=== PATIENT | male | born 1965 | race Caucasian/White ===

== ENCOUNTER 2020-06-20 15:31 | Inpatient (IN) | payer OTHER, SELFPAY ==
[2020-06-20 15:39] VITALS: BP 160/85; PULSE 74; RESP 18; TEMP 36.4; O2SAT 100; BMI 26.6
--- NOTE | 2020-06-20 15:47 | CTR_ITS ---
PROCEDURE INFORMATION: Exam: CT Head Without Contrast Exam date and time: 06/20/2020 3:50 PM Age: 54 years old Clinical indication: Altered mental status/memory loss; Confusion or disorientation; Patient HX: AMS - was found wandering naked in the [place] TECHNIQUE: Imaging protocol: Computed tomography of the head without contrast. Radiation optimization: All CT scans at this facility use at least one of these dose optimization techniques: automated exposure control; mA and/or kV adjustment per patient size (includes targeted exams where dose is matched to clinical indication); or iterative reconstruction. COMPARISON: No relevant prior studies available. RADIATION DOSE METRICS: Total DLP (mGy-cm): 874.38 FINDINGS: Brain: Normal. No hemorrhage. Unremarkable white matter. No mass effect. Cerebral ventricles: No ventriculomegaly. Bones/joints: Unremarkable. No acute fracture. Paranasal sinuses: Visualized sinuses are unremarkable. No fluid levels. Mastoid air cells: Visualized mastoid air cells are well aerated. Soft tissues: Unremarkable. CT/CT head wo con* [id number] IMPRESSION: No acute intracranial abnormality. Radiation Dose CTDIVOL = (mGy): DLP = 874.38 (mGy-cm)
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
[2020-06-20 16:23] LABS: Basophils # 0.1 10^3/uL (0.0-0.1); Basophils % 0.6 %; Eosinophils # 0.2 10^3/uL (0.0-0.8); Eosinophils % 1.7 %; Hematocrit 49.1 % (42.0-52.0); Hemoglobin 15.6 g/dL (11.7-16.6); Lymphocytes # 3.9 10^3/uL (0.8-4.8); Lymphocytes % 28.2 %; Mean Corpuscular HGB Conc 31.8 g/dL (30.0-36.0); Mean Corpuscular Hemoglobin 29.6 pg (28.0-34.0); Mean Corpuscular Volume 93.2 fL (80-94); Mean Platelet Volume 11.3 fL (7.4-10.4); Monocytes # 1.4 10^3/uL (0.2-0.9); Monocytes % 10.3 %; Neutrophils # 8.07 10^3/uL (1.8-7.7); Neutrophils % 58.8 %; Nucleated Red Blood Cells % 0 %; Platelet Count 281 10^3/cmm (130-400); Red Blood Count 5.27 10^6/uL (4.1-5.3); Red Cell Distribution Width 12.7 % (12.1-15.1); White Blood Count 13.7 10^3/uL (4.0-10.0)
--- NOTE | 2020-06-20 16:37 | PC.NURSE ---
Patient items placed in drawer #1 with patient label
[2020-06-20 16:51] LABS: Alanine Aminotransferase 43 U/L (0-41); Albumin Level 4.8 g/dL (3.5-5.2); Alkaline Phosphatase 75 IU/L (40-130); Anion Gap 18.6 (5-19); Aspartate Amino Transferase 84 U/L (0-40); Blood Urea Nitrogen 36 mg/dL (6-20); Calcium 9.8 mg/dL (8.5-10.5); Carbon Dioxide 27 mmol/L (22-29); Chloride 100 mmol/L (98-107); Globulin 3.2 g/dL (1.3-4.6); Glomerular Filtration Rate 57.3 mL/min (90-130); Glucose 91 mg/dL (65-115); Osmolality Calculated 302 mOsm/kg (285-295); Potassium 3.6 mmol/L (3.5-5.1); Salicylate 0.6 mg/dL (3-10); Sodium 142 mmol/L (136-145); Total Bilirubin 0.3 mg/dL (0.15-1.2)
[2020-06-20 16:53] LABS: Acetaminophen < 5.0 ug/mL (10-30); Alcohol Level < 10 mg/dL (0-10)
[2020-06-20 17:10] LABS: Amphetamines Screen Urine Negative (Negative); Barbiturates Screen Urine Negative (Negative); Benzodiazepines Screen Urine Negative (Negative); Cocaine Screen Urine Negative (Negative); Opiate Screen Urine Negative (Negative); PCP Screen Urine Negative (Negative); THC Screen Urine Positive (Negative)
[2020-06-20 17:17] VITALS: BP 188/106; PULSE 86; RESP 18; TEMP 36.8; O2SAT 97
[2020-06-20 18:06] VITALS: BP 117/77; PULSE 75; RESP 14; O2SAT 98
[2020-06-20] MEDS: hyDROXYzine 25 mg Capsule 50 MG PO (20:48)
[2020-06-20] MEDS: trazodone 50 mg Tablet PO (20:48)
[2020-06-20 21:35] VITALS: BP 137/74; PULSE 63; RESP 18; TEMP 36.7; O2SAT 100
[2020-06-21 06:00] VITALS: BP 140/82; PULSE 77; RESP 18; TEMP 36.5; O2SAT 96
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
[2020-06-21 13:31] VITALS: BP 167/96; PULSE 68; RESP 18; TEMP 36.6; O2SAT 97
--- NOTE | 2020-06-21 15:26 | PC.NURSE ---
Pharmacy Patient could only recall [facility] when asked what pharmacy he used. [facility] in [place], [place]. [facility] [place] contacted by this nurse and each [facility] no record [facility].
[2020-06-21] MEDS: trazodone 50 mg Tablet PO (20:50)
[2020-06-21] MEDS: hyDROXYzine 25 mg Capsule 50 MG PO (20:50)
[2020-06-21] MEDS: OLANZapine 5 mg ODT PO (20:51)
[2020-06-21 21:37] VITALS: BP 145/91; PULSE 74; RESP 18; TEMP 36.6; O2SAT 99
[2020-06-22] MEDS: haloperidol 5 mg Tablet PO (00:27)
[2020-06-22] MEDS: OLANZapine 5 mg ODT PO ×2 (01:44→22:34)
[2020-06-22 06:00] VITALS: RESP 16
[2020-06-22] MEDS: acetaminophen 325 mg Tablet 650 MG PO (12:43)
[2020-06-22 14:00] VITALS: BP 147/82; PULSE 56; RESP 18; TEMP 36.7; O2SAT 96
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
[2020-06-22] MEDS: LORazepam 1 mg Tablet PO (20:33)
[2020-06-22 22:00] VITALS: BP 145/81; PULSE 60; RESP 18; TEMP 36.8; O2SAT 99
[2020-06-23 06:00] VITALS: BP 134/86; PULSE 62; RESP 18; TEMP 36.6; O2SAT 94
[2020-06-23 11:24] VITALS: BP 134/86; PULSE 62; RESP 18; TEMP 36.6; O2SAT 94
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
== END 2020-06-23 14:00 | disposition home or self-care (01) | DRG 897 ==
LOC: ER 16:08 → NP 17:53
PROVIDERS: Emergency Medicine; Admitting Provider Psychiatry & Neurology Psychiatry; Visit Provider Psychiatry & Neurology Psychiatry
DX: F12.229 Cannabis dependence with intoxication, unspecified (principal); F03.90 Unspecified dementia, unspecified severity, without behavioral disturbance, psychotic disturbance, mood disturbance, and anxiety
CPT/HCPCS: 12345; 51701; 70450; 80053; 80306; 80307; 85025; 99284

== ENCOUNTER 2020-11-01 12:49 | Inpatient (IN) | payer OTHER, SELFPAY ==
[2020-11-01 12:51] VITALS: BP 162/86; PULSE 96; RESP 16; TEMP 36.9; O2SAT 100; BMI 33.2
--- NOTE | 2020-11-01 13:06 | XRR_ITS ---
PROCEDURE INFORMATION: Exam: XR Chest Exam date and time: 11/01/2020 1:15 PM Age: 54 years old Clinical indication: Other: Reduced breath sounds TECHNIQUE: Imaging protocol: XR of the chest Views: 1 view. COMPARISON: No relevant prior studies available. FINDINGS: Lungs: Unremarkable. No consolidation. Pleural spaces: Unremarkable. No pleural effusion. No pneumothorax. Heart/Mediastinum: Unremarkable. No cardiomegaly. Bones/joints: Unremarkable. XR/XR chest 1V portable [id number] IMPRESSION: No acute findings.
--- NOTE | 2020-11-01 13:06 | CT_ITS ---
WS: [id number] CT HEAD NONCONTRAST HISTORY: altered mental status TECHNIQUE: Contiguous axial imaging performed through the brain in 2.5 mm imaging. Bone and soft tiss ue windows. Sagittal and coronal reformats reviewed. All CT scans at [facility] use at ast one of these dose optimization techniques: automated exposure control; mA and/or kV adjustment pe r patient size (includes targeted exams where dose is matched to clinical indication); or iterative r econstruction. DLP: 865.91 mGy.cm COMPARISON: 06/20/2020 Motion artifact obscuring portions of the brain. No hemorrhage or mass effect is identified. Mild chr onic microvascular ischemic disease. No atrophy or prior infarcts or herniation. Ventricles: Normal size with no hydrocephalus. Paranasal sinuses: As visualized are clear. Mastoid air cells: Well pneumatized. Calvarium and scalp: Skull is intact with no soft tissue edema or swelling. CT/CT head wo con* [id number] IMPRESSION: 1. No acute intracranial hemorrhage or edema. 2. Mild chronic microvascular ischemic disease.
--- NOTE | 2020-11-01 13:06 | ECG_ITS ---
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
[2020-11-01 14:14] LABS: Basophils # 0.1 10^3/uL (0.0-0.1); Basophils % 0.4 %; Eosinophils # 0.2 10^3/uL (0.0-0.8); Eosinophils % 1.3 %; Hematocrit 47.8 % (42.0-52.0); Hemoglobin 15.7 g/dL (11.7-16.6); Lymphocytes # 2.6 10^3/uL (0.8-4.8); Lymphocytes % 18.1 %; Mean Corpuscular HGB Conc 32.8 g/dL (30.0-36.0); Mean Corpuscular Volume 91.2 fL (80-94); Mean Platelet Volume 11.7 fL (7.4-10.4); Monocytes # 1.3 10^3/uL (0.2-0.9); Neutrophils # 10.09 10^3/uL (1.8-7.7); Neutrophils % 70.9 %; Nucleated Red Blood Cells % 0 %; Platelet Count 244 10^3/cmm (130-400); Red Blood Count 5.24 10^6/uL (4.1-5.3); Red Cell Distribution Width 12.3 % (12.1-15.1); White Blood Count 14.2 10^3/uL (4.0-10.0)
[2020-11-01 14:35] LABS: Troponin T (5th) Once 16 ng/L (0-15)
[2020-11-01 14:39] LABS: Alanine Aminotransferase 19 U/L (0-41); Albumin Level 4.7 g/dL (3.5-5.2); Alcohol Level < 10 mg/dL (0-10); Alkaline Phosphatase 81 IU/L (40-130); Anion Gap 17.7 (5-19); Aspartate Amino Transferase 30 U/L (0-40); Blood Urea Nitrogen 22 mg/dL (6-20); Calcium 9.3 mg/dL (8.5-10.5); Carbon Dioxide 26 mmol/L (22-29); Chloride 100 mmol/L (98-107); Globulin 2.8 g/dL (1.3-4.6); Glomerular Filtration Rate 52.6 mL/min (90-130); Glucose 95 mg/dL (65-115); Osmolality Calculated 293 mOsm/kg (285-295); Potassium 3.7 mmol/L (3.5-5.1); Sodium 140 mmol/L (136-145); Total Bilirubin 0.4 mg/dL (0.15-1.2); Total Protein 7.5 g/dL (6.6-8.7)
[2020-11-01] MEDS: sodium chloride 0.9% 1,000 ML 999 ML IV (14:47)
[2020-11-01 15:10] LABS: Add Urine Microscopic? NO
[2020-11-01 15:13] VITALS: BP 155/88; PULSE 92; RESP 16; O2SAT 100
[2020-11-01 15:24] LABS: Blood Urine Neg (Negative); Glucose Urine UA Norm (Normal); Ketones Urine Negative (Negative); Nitrate Urine Negative (Negative); Protein Urine Neg (Negative); Urine Appearance Clear (CLEAR); Urine Color Yellow (Yellow); pH Urine 6 (5-7)
[2020-11-01 15:25] LABS: Bilirubin Urine Neg (Negative); Leukocyte Esterase Urine Negative (Negative); Urobilinogen Urine 1 mg/dL (Negative)
[2020-11-01 15:42] LABS: Amphetamines Screen Urine Negative (Negative); Barbiturates Screen Urine Negative (Negative); Benzodiazepines Screen Urine Negative (Negative); Cocaine Screen Urine Negative (Negative); Opiate Screen Urine Negative (Negative); PCP Screen Urine Negative (Negative); THC Screen Urine Negative (Negative)
[2020-11-01 16:11] VITALS: BP 142/81; PULSE 84; RESP 16; O2SAT 99
[2020-11-01 16:12] VITALS: BP 130/88; PULSE 95; RESP 16; O2SAT 95
[2020-11-01 16:40] VITALS: BP 124/84; PULSE 88; RESP 16; TEMP 37.1; O2SAT 97
--- NOTE | 2020-11-01 18:23 | PC.NURSE ---
Read and agree with assessment
[2020-11-01 22:00] VITALS: BP 142/90; PULSE 101; RESP 18; TEMP 37.5; O2SAT 94
[2020-11-02 06:42] VITALS: BP 132/80; PULSE 77; RESP 18; TEMP 36.7; O2SAT 97
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
[2020-11-02 14:00] VITALS: BP 127/64; PULSE 68; RESP 16; TEMP 37.1; O2SAT 95
[2020-11-02] MEDS: OLANZapine 5 mg ODT PO (14:58)
--- NOTE | 2020-11-02 14:58 | PC.NURSE ---
PRN Zyprexa Zydis/agitation Patient given medication d/t increased confusion, wandering, and disorientation. Patient agreeable to taking medication.
[2020-11-02 20:09] VITALS: BP 132/79; PULSE 72; RESP 15; TEMP 37.4; O2SAT 93
[2020-11-03 06:00] VITALS: RESP 17
--- NOTE | 2020-11-03 11:37 | PM.NPN ---
Subjective NPU Subjective: Interval history: Guanako presented today initially sleeping but easily aroused. Initially he seemed to be a little more pleasant and interactive. He reported that he had and having nightmares but they were gone. This ad copy writer inquired as to the content of the nightmares and essentially stopped speaking after that. He laid in the bed with his eyes closed as if he had fallen asleep and it was not until the fact that he was not sleeping was challenged that he then responded with some of the content from yesterday. Specifically that somehow this ad copy writer knows was going on and knows the issues that he is dealing with and he expressed irritability at the questions. Ultimately he said he did not want to speak anymore. Mental Status Exam MSE Comments: This is an overweight white male in hospital scrubs with adequate grooming and eye contact. No abnormal movements except for psychomotor agitation. Mostly uncooperative with exam in mild to moderate distress. Speech was normal rate and volume. Mood not described, affect irritable. Thought process disorganized. Thought content: Patient did not respond to questions regarding suicidal or homicidal ideation but continued to have an irritable edge towards anyone a asking questions of him, there were no delusions reported but clear paranoid and bizarre delusions appear present, he did not appear to be attending to internal stimuli but seemed to believe that people could read his mind or know things ahead of time or he was able to read what they were thinking. Attention and concentration were limited and memory was unreliable but none were formally tested. He is alert and oriented to person and place. Insight and judgment are impaired and impulse control is impaired. Vitals/I&O/Wt Last Vital Signs Temp 99.3 F 11/02/20 20:09 Pulse 72 11/02/20 20:09 Resp 17 11/03/20 06:00 BP 132/79 11/02/20 20:09 Pulse Ox 93 11/02/20 20:09 Weight last 48 hrs Weight 102.058 kg Data NPU : 11/01/20 14:00 11/01/20 14:00 A&P Additional A&P Information (1) Cannabis intoxication delirium: (2) Substance abuse: (3) Psychosis: (4) Delirium, drug-induced: Additional A&P Information This is a 54-year-old white male who presents confused to the psychiatric unit as he had in May of last year either not knowing who he is or not being willing to say who he is with a negative UDS but clear psychosis/delirium of unknown etiology. 1. Continue current medication. He clearly seems to be a candidate for an antipsychotic but he refuses to even discuss medications. 2. Continue every 15 minute checks for safety. 3. Encourage individual, group and milieu therapies. 4. Encourage sober living treatment after discharge at the highest level of care to which he is willing to commit. Involuntary Hold Information 96 Hour Hold: 96 Hour Involuntary Admission: Yes 96 Hour Hold Ending Date: 11/05/20 96 Hour Hold Ending Time: 14:40 Attestations NPU Medical Necessity Statement*: Inpatient hospitalization is medically necessary and the clinically appropriate intervention at this time. We will monitor medications and make changes as indicated. Likely length of stay 3 to 5 days. Coding Level of Care Code Acute Budget Accountant for Farheen Diane
[2020-11-03 14:00] VITALS: BP 136/88; PULSE 91; RESP 18; TEMP 36.7; O2SAT 96
[2020-11-03] MEDS: OLANZapine 5 mg ODT PO (17:58)
--- NOTE | 2020-11-03 18:01 | PC.NURSE ---
PRN ZYPREXA ZYDIS 5 MG GIVEN PO PER PT C/O STATED ANXIETY. PT HAS BEEN PACING UNIT, WANDERING, CONT TO BE 1:1 WITH SITTER. MUST BE REDIRECTED OFTEN. TOOK PRN MEDICATION WITHOUT INCIDENT. WILL CONT TO MONITOR.
[2020-11-03 20:28] VITALS: BP 147/81; PULSE 79; RESP 16; TEMP 36.8; O2SAT 96
[2020-11-04] MEDS: hyDROXYzine 25 mg Capsule 50 MG PO ×2 (04:02→22:30)
[2020-11-04] MEDS: haloperidol inj 5 mg/mL INJ 1 mL IM (05:18)
[2020-11-04] MEDS: diphenhydrAMINE 50 mg/mL SDV 1mL IM (05:18)
[2020-11-04] MEDS: LORazepam 2 mg/mL INJ 1 mL IM (05:19)
--- NOTE | 2020-11-04 05:21 | PC.NURSE ---
b52/Agitation Pt received B52-2MG ATIVAN IM, 5MG HALDOL IM, 50MG OF BENEDRYL IM, DUE TO INCREASED AGITATION, PT THREW A CHAIR BREAKING IT DOWN THE HALLWAY, BEGAN TO YELL, RUNNING, JUMPING, REFUSED TO FOLLOW INSTRUCTIONS, UNSAFE BEHAVIOR IN THE CHOU, RAN INTO THE BATHROOM, SLINGING THE LINEN CONTAINER IN THE HALLWAY. PT STATED, I HATE THIS SHIT, YOU ALL DO THE SAME THING EVERY DAY, AND HERE I AM, YES, I KNOW WHERE I AM, FUCK, I AM HERE WITH YOU ALL PT WENT INTO THE BATHROOM, SLAMMING THE DOOR, HE IS VISIBLY ANGRY, RED IN THE FACE, EYES ARE WILD AND HE IS INTENT TO TEAR UP THE UNIT. RESTAURANT KITCHEN MANAGER, TRAY DRIER, ARE ON THE UNIT, RN ABLE TO GIVE SHOTS WITHOUT A CODE, PT RETURNED TO BED, RESTING WITH 1:1 ON THE OUTSIDE OF THE DOOR. PT IS RESTING AT THIS TIME.
[2020-11-04 06:00] VITALS: BP 147/95; PULSE 85; RESP 17; TEMP 37; O2SAT 97
[2020-11-04] MEDS: OLANZapine 5 mg ODT PO (10:31)
[2020-11-04] MEDS: haloperidol 5 mg Tablet PO (11:44)
[2020-11-04 14:00] VITALS: BP 115/74; PULSE 70; RESP 20; TEMP 37.1; O2SAT 97
--- NOTE | 2020-11-04 16:00 | PM.NPN ---
Subjective NPU Subjective: Interval history: Continues to be difficult historian, initially reluctant, evasive but subsequently rambling providing delusional responses about 3 kings, new world order, things on TV about communism. Denies any depressive symptoms but reports feeling more irritable about things around him as well as questions being asked. Denies any suicidal ideation Denies any auditory or visual hallucinations Per staff report, multiple episodes of behavioral disturbances, physical agitation Mental Status Exam MSE Comments: Appears older than stated age, lying in bed, initially looking away, poor rapport but subsequently more engaged with interview although providing nonsensical responses Psychomotor activity is somewhat increased, restless, no agitation Speech is normal volume, occasionally faster than normal rate, spontaneous but initially requiring prompting, not pressured I am okay, full range, not labile Alert and oriented to person, type of place, somewhat confused with regards to situation Memory and concentration are poor Intellectual functioning appears to be average based on vocabulary, interview Thought process, tangential, loose Thought content, delusional, does not appear to be attending to any internal stimuli, no suicidal or homicidal ideation Insight and judgment are limited Vitals/I&O/Wt Last Vital Signs Temp 98.7 F 11/04/20 14:00 Pulse 70 11/04/20 14:00 Resp 20 H 11/04/20 14:00 BP 115/74 11/04/20 14:00 Pulse Ox 97 11/04/20 14:00 Data NPU : 11/01/20 14:00 11/01/20 14:00 A&P Assessment and plan (1) Delirium, drug-induced: Status: Acute (2) Psychosis: Status: Acute (3) Substance abuse: Status: Acute (4) Cannabis intoxication delirium: Status: Acute Additional A&P Information Unclear etiology but patient continues to have confusion, nonsensical responses, delusions, worsening in the evening with poor memory. Patient would likely benefit from scheduled antipsychotic targeting organization of thoughts and speech as well as targeting increasing physical agitation which may potentially pose a risk of harm to self and others providing care to him. Continue one-to-one START risperidone 1 mg twice daily targeting psychotic symptoms Continue to provide frequent orientation and behavioral redirection Involuntary Hold Information 96 Hour Hold: 96 Hour Involuntary Admission: Yes 96 Hour Hold Ending Date: 11/05/20 96 Hour Hold Ending Time: 14:40 Attestations NPU Medical Necessity Statement*: Continues require psychiatric hospitalization for medication stabilization, ongoing psychosis Coding Level of Care Code Acute Sales Advisory Manager for [facility] Fwd Diagnoses Delirium, drug-induced R41.0; T50.905A Psychosis F29 Substance abuse F19.10 Cannabis intoxication delirium F12.921
[2020-11-04] MEDS: risperiDONE 1 mg Tablet PO ×2 (16:37→17:38)
[2020-11-04 22:00] VITALS: BP 137/81; PULSE 102; RESP 18; TEMP 36.4; O2SAT 97
[2020-11-04] MEDS: trazodone 50 mg Tablet PO (22:30)
--- NOTE | 2020-11-04 22:33 | PC.NURSE ---
Patient tossing and turning; can't sleep. Getting anxious and slightly agitated. Trazodone 50mg PO for sleep and Vistaril 50mg PO given for anxiety agitation.
[2020-11-05 06:00] VITALS: RESP 17
[2020-11-05] MEDS: risperiDONE 1 mg Tablet PO ×2 (07:40→16:59)
--- NOTE | 2020-11-05 09:54 | PM.NPN ---
Subjective NPU Subjective: Interval history: Patient reports some improvement in organization of his thoughts but states, I cannot explain why. 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 Had previously reported some marijuana use but unable to provide frequency or amount or any other substance use Denies any recent alcohol use Patient reports being compliant with medication, denies any medication side effects Per staff report, continues to have intermittent behavioral disturbances with some difficulty redirecting, wandering behavior in conjunction with his confusion Mental Status Exam MSE Comments: Lying in bed, some difficulty with interview secondary to delayed response, confusion, fair eye contact, fair rapport Psychomotor activity is neither increased nor decreased, no agitation Speech, frequent pauses, normal volume, normal rate, occasionally requires prompting, not pressured I am okay, incongruent affect, constricted, not labile Some confusion, oriented to person, type of place but unaware of situation or events leading to hospitalization Memory and concentration are poor per interview Thought process, delayed, occasional loose loose of association Thought content, some delusions, does not appear to be attending to any internal stimuli, no suicidal or homicidal ideation Insight and judgment are limited Vitals/I&O/Wt Last Vital Signs Temp 97.6 F 11/04/20 22:00 Pulse 102 H 11/04/20 22:00 Resp 17 11/05/20 06:00 BP 137/81 11/04/20 22:00 Pulse Ox 97 11/04/20 22:00 Data NPU : 11/01/20 14:00 11/01/20 14:00 A&P Assessment and plan (1) Delirium, drug-induced: Status: Acute (2) Psychosis: Status: Acute Qualifiers: Psychosis type: unspecified psychosis type Qualified Code(s): F29 - Unspecified psychosis not due to a substance or known physiological condition (3) Substance abuse: Status: Acute Additional A&P Information Patient continues to demonstrate confusion, intermittent wandering behavior, recent marijuana use but unclear if cognitive issues are related to acute substance intoxication versus underlying cognitive disorder, would benefit from ongoing work-up targeting reversible etiology. Patient would also benefit from use of antipsychotic targeting physical agitation and mood symptoms. 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
[2020-11-05 11:26] LABS: Homocysteine 10.79; Vitamin B12 570 pg/mL (232-1245)
[2020-11-05 11:49] LABS: HIV 1 & 2 Antibody Non-Reactive (Non-Reactiv); HIV 1 & 2 Antigen Non-Reactive (Non-Reactiv)
[2020-11-05 14:00] VITALS: BP 106/76; PULSE 90; RESP 18; TEMP 36.7; O2SAT 95
[2020-11-05 22:00] VITALS: RESP 16
[2020-11-06 06:00] VITALS: BP 126/72; PULSE 64; RESP 18; TEMP 37; O2SAT 96
[2020-11-06] MEDS: risperiDONE 1 mg Tablet PO ×2 (09:22→16:55)
--- NOTE | 2020-11-06 12:58 | PM.NPN ---
Subjective NPU Subjective: Interval history: Appears to have significantly improved alertness as well as interaction throughout interview Denies any mood symptoms, no depressed symptoms, no suicidal ideation Denies any delusions, denies any hallucinations Patient states that he feels like he is thinking more clearly Reports being compliant with his medication, denies any medication side effects Per staff report, no interval behavioral disturbances Patient states that he slept well and feels rested Mental Status Exam MSE Comments: Sitting up in his bed, calm, cooperative, interactive, polite, good eye contact Psychomotor activity is neither increased nor decreased, no agitation Speech, frequent pauses, normal volume, normal rate, occasionally requires prompting, not pressured I feel pretty good, full range of affect, smiles appropriately at times, not labile Alert and oriented to person, type of place, city, somewhat to situation Memory and concentration are fair per interview Thought process, linear, no flight of ideas Thought content, no reported delusions, no hallucinations, no suicidal or homicidal ideation Insight and judgment are fair Vitals/I&O/Wt Last Vital Signs Temp 98.6 F 11/06/20 06:00 Pulse 64 11/06/20 06:00 Resp 18 11/06/20 06:00 BP 126/72 11/06/20 06:00 Pulse Ox 96 11/06/20 06:00 Data NPU : 11/01/20 14:00 11/01/20 14:00 A&P Assessment and plan (1) Delirium, drug-induced: Status: Acute (2) Psychosis: Status: Acute Qualifiers: Psychosis type: unspecified psychosis type Qualified Code(s): F29 - Unspecified psychosis not due to a substance or known physiological condition (3) Substance abuse: Status: Acute Additional A&P Information Reports significant improvement in cognition, mood CONTINUE current medication, continue to monitor Involuntary Hold Information 96 Hour Hold: 96 Hour Involuntary Admission: Yes 96 Hour Hold Ending Date: 11/05/20 96 Hour Hold Ending Time: 14:40 Attestations NPU Medical Necessity Statement*: Continues require psychiatric hospitalization for medication stabilization, monitoring Coding Level of Care 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
[2020-11-06 14:00] VITALS: BP 98/64; PULSE 98; RESP 20; TEMP 37.2; O2SAT 94
[2020-11-06] MEDS: trazodone 50 mg Tablet PO (20:47)
[2020-11-06] MEDS: hyDROXYzine 25 mg Capsule 50 MG PO (20:47)
[2020-11-06 21:10] VITALS: BP 126/76; PULSE 105; RESP 18; TEMP 37.2; O2SAT 96
[2020-11-07 06:00] VITALS: BP 123/78; PULSE 111; RESP 18; TEMP 36.6; O2SAT 96
[2020-11-07] MEDS: risperiDONE 1 mg Tablet PO ×2 (08:11→20:10)
--- NOTE | 2020-11-07 13:21 | P.PN_ITS ---
Subjective NPU Subjective: Interval history: Continues to report some fogginess with regards to his thinking but reports significant improvement and feels like his thoughts are more organized Denies any interval mood symptoms, denies any depression, denies any suicidal ideation Denies any auditory or visual destinations, denies any delusions Reports being compliant with his medication, denies any medication side effects Reports that his sleep has improved Continues to have a good appetite Per staff report, no interval behavioral disturbances Mental Status Exam MSE Comments: Appropriately groomed and dressed, calm, cooperative, interactive, lying in bed, good eye contact Psychomotor activity is neither increased nor decreased, no agitation Speech, normal rate, normal volume, spontaneous, not pressured I feel good, full range of affect, smiles appropriately at times, not labile Alert and oriented to person, place, time, situation Memory and concentration are fair per interview Thought process, linear, no flight of ideas Thought content, no reported delusions, no hallucinations, no suicidal or homicidal ideation Insight and judgment are fair Vitals/I&O/Wt Last Vital Signs Temp 97.8 F 11/07/20 06:00 Pulse 111 H 11/07/20 06:00 Resp 18 11/07/20 06:00 BP 123/78 11/07/20 06:00 Pulse Ox 96 11/07/20 06:00 Weight last 48 hrs Weight 102.058 kg Data NPU : 11/01/20 14:00 11/01/20 14:00 A&P Assessment and plan (1) Delirium, drug-induced: Status: Acute (2) Psychosis: Status: Acute Qualifiers: Psychosis type: unspecified psychosis type Qualified Code(s): F29 - Unspecified psychosis not due to a substance or known physiological condition (3) Substance abuse: Status: Acute Additional A&P Information CONTINUE current medication, continue to monitor Involuntary Hold Information 96 Hour Hold: 96 Hour Involuntary Admission: Yes 96 Hour Hold Ending Date: 11/05/20 96 Hour Hold Ending Time: 14:40 Attestations NPU Medical Necessity Statement*: Continues to require psychiatric hospitalization, medication stabilization, coordination for safe discharge Coding Level of Care Code 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
[2020-11-07 13:31] VITALS: BP 106/70; PULSE 100; RESP 18; TEMP 37.5
[2020-11-07 19:57] VITALS: BP 128/86; PULSE 82; RESP 18; TEMP 36.9; O2SAT 96
[2020-11-08 06:00] VITALS: BP 132/80; PULSE 89; RESP 16; TEMP 36.8; O2SAT 97
[2020-11-08] MEDS: risperiDONE 1 mg Tablet PO (07:46)
[2020-11-08 10:31] LABS: Lymes IGG WB <0.90 index
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
[2020-11-08 13:22] VITALS: BP 132/80; PULSE 89; RESP 16; TEMP 36.8; O2SAT 97
[2020-11-08 14:00] VITALS: BP 114/76; PULSE 103; RESP 16; TEMP 36.7; O2SAT 95
== END 2020-11-08 15:11 | disposition home or self-care (01) | DRG 885 ==
LOC: ER 16:03 → NP 16:20
PROVIDERS: Admitting Provider Psychiatry & Neurology Psychiatry; Emergency Provider Family Medicine; Visit Provider Psychiatry & Neurology Psychiatry
DX: F29 Unspecified psychosis not due to a substance or known physiological condition (principal); F19.921 Other psychoactive substance use, unspecified with intoxication with delirium; R41.0 Disorientation, unspecified
CPT/HCPCS: 36415; 70450; 71045; 80053; 80306; 80307; 81003; 82607; 83090; 84443; 84484; 85025; 86617; 87806; 93005; 96372; 99285; J1200; J1630; J2060; J7030